=== PATIENT | female | born 1945 | race Caucasian/White ===

== ENCOUNTER 2018-11-06 11:04 | Emergency (ER) | payer MEDICARE ==
[2018-11-06 11:48] VITALS: BP 155/87
--- NOTE | 2018-11-06 12:09 | UC ---
Back Pain HPI - HPI Summary HPI Summary: Patient is a 73-year-old female here with lower back pain. Patient has had sciatica off and on chronically. On Saturday, patient lifted her granddaughter who weight 40 pounds and developed worsening pain in her left lower back. Patient's pain does radiate to her left hip. Patient has no fever, history of diabetes, history of drug use, bowel/bladder dysfunction, saddle anesthesia, weakness. Patient did notice a small amount of blood on her toilet this morning after she wiped her rectum. Patient does have a history of "septic colitis "requiring one week of hospitalization with presented with rectal bleeding and fever. Medications reviewed - History of Current Complaint Chief Complaint: UCGeneralIllness Stated Complaint: PAIN IN HIP / PELVIS AREA Time Seen by Provider: 11/06/18 11:55 Hx Obtained From: Patient Onset/Duration: Gradual Onset Timing: Constant Severity Initially: Mild Severity Currently: Moderate Pain Intensity: 6 - Allergies/Home Medications Allergies/Adverse Reactions: Allergies Allergy/AdvReac Type Severity Reaction Status Date / Time CARLOS Inhibitors Allergy Coughing Verified 11/06/18 11:56 azithromycin [From Zithromax] Allergy Rash Verified 11/06/18 11:56 clindamycin Allergy unk Verified 11/06/18 11:56 nitrofurantoin Allergy unk Verified 11/06/18 11:57 sertraline Allergy Rash Verified 11/06/18 11:57 sulfamethoxazole Allergy Rash Verified 11/06/18 11:58 [From Bactrim] trimethoprim [From Bactrim] Allergy Rash Verified 11/06/18 11:58 Home Medications: Home Medications Lisinopril 20 mg PO DAILY 11/06/18 [History Confirmed 11/06/18] Metoprolol Tartrate 1 tab PO BID 11/06/18 [History Confirmed 11/06/18] Metoprolol Tartrate 1 tab PO DAILY 11/06/18 [History Confirmed 11/06/18] levETIRAcetam [Levetiracetam] 1 tab PO BID 11/06/18 [History Confirmed 11/06/18] PMH/Surg Hx/FS Hx/Imm Hx Previously Healthy: Yes - Surgical History Surgical History: Yes Surgery Procedure, Year, and Place: hx of cervical surgery following HPV - Family History Known Family History: Negative: Cardiac Disease, Hypertension, Diabetes - Social History Alcohol Use: None Substance Use Type: None Smoking Status (MU): Never Smoked Tobacco - Immunization History Most Recent Influenza Vaccination: this influenza season received at [facility] Most Recent Tetanus Shot: n/a Most Recent Pneumonia Vaccination: thinks she may have received in the past Review of Systems All Other Systems Reviewed And Are Negative: Yes Constitutional: Negative: Fever, Chills ENT: Negative: Sore Throat, Nasal Discharge Respiratory: Negative: Shortness Of Breath Cardiovascular: Negative: Palpitations, Chest Pain Gastrointestinal: Negative: Abdominal Pain, Vomiting, Diarrhea Genitourinary: Negative: Dysuria, Hematuria Physical Exam - Summary Physical Exam Summary: Vital Signs Reviewed: Yes A+Ox3, no distress Eyes: Conjunctiva Clear, PERRL. EOM intact and full ENT: Hearing grossly normal TM x 2 clear, moist, uvula midline, no exudate, no erythema Neck: Positive: Supple Respiratory: Positive: No respiratory distress, No accessory muscle use + CTA throughout no w/r Cardiovascular: RRR nl s1, s2 no m/r CBT <2 sec abd soft + BS nt/nd no guarding, no distension. Brown stool on rectal exam. Small external hemorrhoid Musculoskeletal Exam: CHANG x 4 without difficulty Strength Intact, ROM Intact. Mild left lateral, lower back pain. Patient able ambulate without difficulty. Straight leg raise negative bilaterally. No midline tenderness Neurological: Positive: Alert, + sensation throughout Psychological: Positive: Normal Response To Family Skin: no rash, no ecchymosis Vital Signs: Initial Vital Signs Temp 98.2 F 11/06/18 11:44 Pulse 67 11/06/18 11:44 Resp 16 11/06/18 11:44 BP 155/87 11/06/18 11:44 Pulse Ox 100 11/06/18 11:44 Back Pain Course/Dx - Course Course Of Treatment: Patient is here with lower back pain that is consistent with a muscular strain. Patient sits her symptoms in the past. Patient is overall well-appearing with her only red flag is her age. Patient had negative x-ray for fracture. Patient did have one episode of blood on the toilet paper today with no blood on rectal exam. Patient has a history of colitis in the past requiring hospitalization. Patient was encouraged to go to the hospital if she continued to have rectal bleeding. - Differential Dx/Diagnosis Differential Diagnosis/HQI/PQRI: Fracture, Herniated Disc, Strain, Sprain, Other - Colitis Provider Diagnosis: Lower back pain Discharge - Sign-Out/Discharge Documenting (check all that apply): Patient Departure All imaging exams completed and their final reports reviewed: Yes - Discharge Plan Condition: Stable Disposition: HOME Patient Education Materials: Low Back Strain (ED) Referrals: Pradip Sanz MD [Primary Care Provider] - Additional Instructions: Please take ibuprofen and Tylenol for pain please go straight to the emergency department if worsening abdominal pain or rectal bleeding - Billing Disposition and Condition Condition: STABLE Disposition: Home
== END 2018-11-06 14:15 | disposition home or self-care (01) ==
LOC: UCEAST 11:04
DX: M54.5 Low back pain (principal); Z88.2 Allergy status to sulfonamides
CPT/HCPCS: 72110; 99211; G0463

== ENCOUNTER 2020-02-20 20:20 | Inpatient (IN) ==
[2020-02-20] MEDS ORDERED: Tetan/Diph/Pertus SYR(Tdap) 0.5 ML SYR(BOOSTRIX) use SYR contains LATEX IM ONE (20:36)
[2020-02-20 21:54] LABS: ABS Eosinophils 0.1 10^3/ul (0-0.6); ABS Lymphocytes 1.8 10^3/ul (1.0-4.8); ABS Monocytes 0.7 10^3/ul (0-0.8); Eosinophil % 1.9 %; Hematocrit 38 % (35-47); Lymphocyte % 23.6 %; Mean Corpuscular HGB Conc 34 g/dL (31-36); Mean Corpuscular Hemoglobin 30 pg (27-31); Mean Corpuscular Volume 89 fL (80-97); Mean Platelet Volume 7.2 fL (7.4-10.4); Platelet Count 286 10^3/uL (150-450); Red Blood Count 4.31 10^6 /uL (3.70-4.87); Red Cell Distribution Width 13 % (10-15); White Blood Count 7.7 10^3/uL (3.5-10.8)
[2020-02-20 22:12] LABS: ALT 9 U/L (7-52); AST 14 U/L (13-39); Albumin 4.1 g/dL (3.2-5.2); Albumin/Globulin Ratio 1.6 (1-3); Alkaline Phosphatase 90 U/L (34-104); Anion Gap 10 mmol/L (2-11); BUN/Creatinine Ratio 15.7 (8-20); Blood Urea Nitrogen 13 mg/dL (6-24); CO2 Carbon Dioxide 25 mmol/L (22-32); Calcium 9.6 mg/dL (8.6-10.3); Chloride 102 mmol/L (101-111); EGFR African American 81.8 (>60); EGFR Non-African American 67.6 (>60); Globulin 2.6 g/dL (2-4); Glucose 100 mg/dL (70-100); Potassium 3.5 mmol/L (3.5-5.0); Sodium 137 mmol/L (135-145); Total Protein 6.7 g/dL (6.4-8.9)
[2020-02-20 22:51] LABS: Urine Appearance Cloudy; Urine Bilirubin Negative (Negative); Urine Blood 1+ (Negative); Urine Color Yellow; Urine Glucose Negative (Negative); Urine Ketones Trace (Negative); Urine Nitrite Negative (Negative); Urine Protein Negative (Negative); Urine Specific Gravity 1.011 (1.010-1.030); Urine Urobilinogen Negative (Negative)
[2020-02-20 22:51] LABS: Acetaminophen < 15 mcg/mL; Alcohol, S < 10 mg/dL (<10); Salicylate < 2.50 mg/dL (<30)
[2020-02-20 23:00] LABS: Urine Bacteria 1+ (Absent); Urine Red Blood Cell 2+(6-10/hpf) (Absent); Urine Squamous Epithelial Cell Present (Absent); Urine White Blood Cell 1+(6-10/hpf) (Absent)
[2020-02-20 23:03] LABS: Urine Benzodiazepine Screen None Detected (None Detect); Urine Cannabinoids Screen None Detected (None Detect); Urine Opiates Screen None Detected (None Detect)
[2020-02-20 23:38] LABS: TSH Ultra Thyroid Stim Horm 0.74 mcIU/mL (0.34-5.60)
[2020-02-21] MEDS ORDERED: CHLORPROMAZINE 50 MG PO (04:15)
[2020-02-21] MEDS ORDERED: Albuterol HFA INHALER 8 gm MDI INH PRN (04:24)
[2020-02-21] MEDS: Vitamin THERAPEUTIC TAB PO SCH (08:50)
[2020-02-21] MEDS: DULoxetine DR 30 mg CAP PO SCH (08:50)
[2020-02-21] MEDS: Aspirin EC 81 mg TAB.EC (enteric coated) PO SCH (08:51)
[2020-02-21] MEDS: Mometasone/Formoter 200/5 MDI INH SCH ×2 (08:57→21:53)
[2020-02-21] MEDS: Al Hydrox/Mg Hydrox/Simet LIQ 30 ML UDC PO PRN (17:58)
[2020-02-22] MEDS: Aspirin EC 81 mg TAB.EC (enteric coated) PO SCH (09:03)
[2020-02-22] MEDS: Vitamin THERAPEUTIC TAB PO SCH (09:03)
[2020-02-22] MEDS: Mometasone/Formoter 200/5 MDI INH SCH ×2 (09:03→19:01)
[2020-02-22] MEDS: DULoxetine DR 30 mg CAP PO SCH (09:03)
[2020-02-22] MEDS: Bacitracin OINTMENT TUBE TOPICAL SCH ×2 (16:25→19:34)
[2020-02-23] MEDS: Mometasone/Formoter 200/5 MDI INH SCH ×2 (09:14→19:12)
[2020-02-23] MEDS: DULoxetine DR 30 mg CAP PO SCH ×2 (09:16→19:08)
[2020-02-23] MEDS: Aspirin EC 81 mg TAB.EC (enteric coated) PO SCH (09:16)
[2020-02-23] MEDS: Vitamin THERAPEUTIC TAB PO SCH (09:20)
[2020-02-23] MEDS: Bacitracin OINTMENT TUBE TOPICAL SCH ×2 (11:13→19:14)
[2020-02-23] MEDS: Al Hydrox/Mg Hydrox/Simet LIQ 30 ML UDC PO PRN (17:30)
[2020-02-24] MEDS: Mometasone/Formoter 200/5 MDI INH SCH ×2 (07:58→19:17)
[2020-02-24] MEDS: DULoxetine DR 30 mg CAP PO SCH ×2 (07:59→19:14)
[2020-02-24] MEDS: Bacitracin OINTMENT TUBE TOPICAL SCH ×2 (07:59→19:19)
[2020-02-24] MEDS: Vitamin THERAPEUTIC TAB PO SCH (08:04)
[2020-02-24] MEDS: Aspirin EC 81 mg TAB.EC (enteric coated) PO SCH (08:17)
[2020-02-25] MEDS: Aspirin EC 81 mg TAB.EC (enteric coated) PO SCH (08:00)
[2020-02-25] MEDS: DULoxetine DR 30 mg CAP PO SCH ×2 (08:01→19:10)
[2020-02-25] MEDS: Vitamin THERAPEUTIC TAB PO SCH (08:01)
[2020-02-25] MEDS: Mometasone/Formoter 200/5 MDI INH SCH ×2 (08:02→19:11)
[2020-02-25] MEDS: Bacitracin OINTMENT TUBE TOPICAL SCH ×2 (08:02→20:22)
[2020-02-26] MEDS: Mometasone/Formoter 200/5 MDI INH SCH (09:08)
[2020-02-26] MEDS: Aspirin EC 81 mg TAB.EC (enteric coated) PO SCH (09:09)
[2020-02-26] MEDS: DULoxetine DR 30 mg CAP PO SCH (09:09)
[2020-02-26] MEDS: Vitamin THERAPEUTIC TAB PO SCH (09:10)
[2020-02-26] MEDS: Bacitracin OINTMENT TUBE TOPICAL SCH (09:14)
[2020-02-26 09:30] VITALS: BP 174/95
== END 2020-02-26 15:00 | disposition home or self-care (01) | DRG 885 ==
LOC: ED 20:20 → BSU 02-21 00:42 → ED 02-21 03:03
PROVIDERS: ADMIT Psychiatry & Neurology Addiction Psychiatry; ATTEND Psychiatry & Neurology Addiction Psychiatry

== ENCOUNTER 2020-03-21 20:15 | Inpatient (IN) ==
[2020-03-21 21:16] LABS: ABS Basophils 0.2 10^3/ul (0-0.2); ABS Eosinophils 0.1 10^3/ul (0-0.6); ABS Lymphocytes 2.3 10^3/ul (1.0-4.8); ABS Monocytes 0.7 10^3/ul (0-0.8); Eosinophil % 1.5 %; Hematocrit 38 % (35-47); Hemoglobin 13.1 g/dL (12.0-16.0); Lymphocyte % 27.5 %; Mean Corpuscular HGB Conc 34 g/dL (31-36); Mean Corpuscular Hemoglobin 30 pg (27-31); Mean Corpuscular Volume 87 fL (80-97); Mean Platelet Volume 6.9 fL (7.4-10.4); Nucleated Red Blood Cells % 0.1; Platelet Count 323 10^3/uL (150-450); Red Blood Count 4.38 10^6 /uL (3.70-4.87); Red Cell Distribution Width 13 % (10-15); White Blood Count 8.3 10^3/uL (3.5-10.8)
[2020-03-21 21:40] LABS: ALT 11 U/L (7-52); Albumin/Globulin Ratio 1.7 (1-3); Alkaline Phosphatase 83 U/L (34-104); BUN/Creatinine Ratio 15.1 (8-20); Blood Urea Nitrogen 11 mg/dL (6-24); CO2 Carbon Dioxide 23 mmol/L (22-32); Calcium 9.2 mg/dL (8.6-10.3); Chloride 97 mmol/L (101-111); Creatine Kinase 68 U/L (10-223); EGFR African American 94.8 (>60); EGFR Non-African American 78.4 (>60); Globulin 2.4 g/dL (2-4); Glucose 91 mg/dL (70-100); Magnesium 2.1 mg/dL (1.9-2.7); Sodium 129 mmol/L (135-145); Total Protein 6.4 g/dL (6.4-8.9)
[2020-03-21 22:05] LABS: Alcohol, S < 10 mg/dL (<10)
[2020-03-21 22:51] LABS: AST 18 U/L (13-39); Anion Gap 9 mmol/L (2-11)
[2020-03-22 00:35] LABS: TSH Ultra Thyroid Stim Horm 1.73 mcIU/mL (0.34-5.60)
[2020-03-22 00:48] LABS: Urine Appearance Clear; Urine Bilirubin Negative (Negative); Urine Blood 1+ (Negative); Urine Color Straw; Urine Glucose Negative (Negative); Urine Ketones Negative (Negative); Urine Nitrite Negative (Negative); Urine Protein Negative (Negative); Urine Specific Gravity 1.004 (1.010-1.030); Urine Urobilinogen Negative (Negative)
[2020-03-22 00:54] LABS: Urine Bacteria Absent (Absent); Urine Red Blood Cell Trace(0-2/hpf) (Absent); Urine Squamous Epithelial Cell Present (Absent); Urine White Blood Cell Trace(0-5/hpf) (Absent)
[2020-03-22] MEDS ORDERED: Albuterol HFA INHALER 8 gm MDI INH PRN (02:12)
[2020-03-22 04:46] LABS: ABS Basophils 0.1 10^3/ul (0-0.2); ABS Eosinophils 0.1 10^3/ul (0-0.6); ABS Lymphocytes 1.9 10^3/ul (1.0-4.8); ABS Monocytes 0.6 10^3/ul (0-0.8); ABS Neutrophils 5.2 10^3/ul (1.5-7.7); Eosinophil % 1.1 %; Lymphocyte % 24.8 %
[2020-03-22 05:01] LABS: BUN/Creatinine Ratio 12.5 (8-20); Calcium 8.9 mg/dL (8.6-10.3); EGFR African American 96.3 (>60); EGFR Non-African American 79.6 (>60); Potassium 3.4 mmol/L (3.5-5.0)
[2020-03-22 05:42] LABS: Carbamazepine 6.4 mcg/mL (4.0-12.0)
[2020-03-22 08:09] LABS: Hematocrit 38 % (35-47); Hemoglobin 13.1 g/dL (12.0-16.0); Mean Corpuscular HGB Conc 34 g/dL (31-36); Mean Corpuscular Hemoglobin 30 pg (27-31); Mean Corpuscular Volume 88 fL (80-97); Mean Platelet Volume 7.3 fL (7.4-10.4); Platelet Count 299 10^3/uL (150-450); Red Blood Count 4.33 10^6 /uL (3.70-4.87); Red Cell Distribution Width 13 % (10-15); White Blood Count 7.9 10^3/uL (3.5-10.8)
[2020-03-22] MEDS: Fluticasone NASAL SPRAY 50MCG 16 gm SPRAY BTL INTRANASAL SCH (08:55)
[2020-03-22] MEDS: DULoxetine DR 30 mg CAP PO SCH ×2 (08:58→20:58)
[2020-03-22] MEDS: Mometasone/Formoter 200/5 MDI INH SCH ×2 (09:00→21:07)
[2020-03-22] MEDS ORDERED: Potassium Chlor 20 meq TAB.ER PO ONE (14:00)
[2020-03-22] MEDS ORDERED: Al Hydrox/Mg Hydrox/Simet LIQ 30 ML UDC PO PRN (15:30)
[2020-03-23 07:34] LABS: ABS Basophils 0.1 10^3/ul (0-0.2); ABS Eosinophils 0.1 10^3/ul (0-0.6); ABS Lymphocytes 1.8 10^3/ul (1.0-4.8); ABS Monocytes 0.5 10^3/ul (0-0.8); Eosinophil % 1.6 %; Hematocrit 40 % (35-47); Hemoglobin 13.4 g/dL (12.0-16.0); Lymphocyte % 27.3 %; Mean Corpuscular HGB Conc 34 g/dL (31-36); Mean Corpuscular Hemoglobin 30 pg (27-31); Mean Corpuscular Volume 89 fL (80-97); Mean Platelet Volume 6.9 fL (7.4-10.4); Platelet Count 313 10^3/uL (150-450); Red Blood Count 4.49 10^6 /uL (3.70-4.87); Red Cell Distribution Width 13 % (10-15); White Blood Count 6.5 10^3/uL (3.5-10.8)
[2020-03-23 07:45] LABS: BUN/Creatinine Ratio 15.2 (8-20); EGFR African American 86.6 (>60); EGFR Non-African American 71.5 (>60); HDL Cholesterol 50.1 mg/dL; Potassium 4.2 mmol/L (3.5-5.0)
[2020-03-23] MEDS: Fluticasone NASAL SPRAY 50MCG 16 gm SPRAY BTL INTRANASAL SCH (08:22)
[2020-03-23] MEDS: Mometasone/Formoter 200/5 MDI INH SCH ×3 (08:23→21:29)
[2020-03-23] MEDS: DULoxetine DR 30 mg CAP PO SCH ×2 (08:25→21:28)
[2020-03-23] MEDS ORDERED: Nitroglycerin 0.4 mg/hr PATCH (10 mg) TRANSDERM SCH (17:00)
[2020-03-23] MEDS ORDERED: Nitroglycerin 0.4 mg/hr PATCH (10 mg) TRANSDERM ONE (18:55)
[2020-03-23] MEDS ORDERED: Nitro Patch/OINT Remove PATCH PATCH OFF SCH (21:00)
[2020-03-24] MEDS ORDERED: Nitro Patch/OINT Remove PATCH TOPICAL ONE (07:00)
[2020-03-24 09:13] VITALS: BP 121/70
[2020-03-24] MEDS: DULoxetine DR 30 mg CAP PO SCH (09:18)
[2020-03-24] MEDS: Fluticasone NASAL SPRAY 50MCG 16 gm SPRAY BTL INTRANASAL SCH (09:23)
[2020-03-24] MEDS: Mometasone/Formoter 200/5 MDI INH SCH (09:23)
== END 2020-03-24 13:15 | disposition home or self-care (01) | DRG 885 ==
LOC: ED 20:15 → SSU 20:15 → BSU 03-22 15:30
PROVIDERS: ADMIT Internal Medicine; ATTEND Psychiatry & Neurology Psychiatry

== ENCOUNTER 2020-05-01 10:10 | Inpatient (IN) ==
[2020-05-01] MEDS ORDERED: NS 0.9% 1000 ml BAG 1,000 ML IV ONE ×4 (10:25→14:38)
[2020-05-01 11:31] LABS: ABS Lymphocytes 1.3 10^3/ul (1.0-4.8); ABS Monocytes 0.5 10^3/ul (0-0.8); ABS Neutrophils 7.2 10^3/ul (1.5-7.7); Eosinophil % 0.2 %; Hematocrit 43 % (35-47); Lymphocyte % 14.3 %; Mean Corpuscular HGB Conc 33 g/dL (31-36); Mean Corpuscular Hemoglobin 30 pg (27-31); Mean Corpuscular Volume 93 fL (80-97); Mean Platelet Volume 7.1 fL (7.4-10.4); Nucleated Red Blood Cells % 0.3; Platelet Count 291 10^3/uL (150-450); Red Cell Distribution Width 13 % (10-15); White Blood Count 9.1 10^3/uL (3.5-10.8)
[2020-05-01] MEDS ORDERED: Morphine 4 MG/ML VIAL (1 ml) IV ONE (11:33)
[2020-05-01] MEDS ORDERED: Ondansetron 4 mg VIAL 2 MG/ML 2 ml VIAL IV ONE (11:34)
[2020-05-01 11:38] LABS: Albumin 2.4 g/dL (3.2-5.2); Calcium 7.2 mg/dL (8.6-10.3); Magnesium 2.4 mg/dL (1.9-2.7); Potassium 3.6 mmol/L (3.5-5.0); Total Bilirubin 0.7 mg/dL (0.2-1.0)
[2020-05-01 11:44] LABS: Albumin/Globulin Ratio 1.3 (1-3); BUN/Creatinine Ratio 8.8 (8-20); EGFR African American 35.7 (>60); EGFR Non-African American 29.5 (>60); Globulin 1.8 g/dL (2-4); Total Protein 4.2 g/dL (6.4-8.9); Troponin I 0.01 ng/mL (<0.03)
[2020-05-01 12:19] LABS: TSH Ultra Thyroid Stim Horm 2.99 mcIU/mL (0.34-5.60)
[2020-05-01 14:14] LABS: BUN/Creatinine Ratio 10.4 (8-20); Calcium 6.9 mg/dL (8.6-10.3); EGFR African American 37.5 (>60); Potassium 3.9 mmol/L (3.5-5.0)
[2020-05-01 14:35] LABS: C Reactive Protein 50.37 mg/L (<8.01)
[2020-05-01] MEDS ORDERED: Piperacillin/Tazobac ADVAN 3.375 GM in NS 0.9% 100 ml BAG 100 ML IVPB ONE (14:38)
[2020-05-01] MEDS: Norepinephrine 16MCG/ML IVPRE 4,000 MCG/250 ML BAG IV SCH ×2 (15:19→21:19)
[2020-05-01 15:24] LABS: Urine Appearance Cloudy; Urine Bilirubin Negative (Negative); Urine Blood 2+ (Negative); Urine Color Amber; Urine Glucose Negative (Negative); Urine Ketones Negative (Negative); Urine Nitrite Negative (Negative); Urine Protein 1+(30 mg/dL) (Negative); Urine Specific Gravity 1.011 (1.010-1.030); Urine Urobilinogen Positive (Negative)
[2020-05-01 15:28] LABS: Urine Bacteria Absent (Absent); Urine Granular Casts Present (Absent); Urine Red Blood Cell Trace(0-2/hpf) (Absent); Urine Squamous Epithelial Cell Present (Absent); Urine White Blood Cell Trace(0-5/hpf) (Absent)
[2020-05-01] MEDS ORDERED: Ketamine HCL 50 mg/ml 10 ml VIAL (500 MG) ONE (15:35)
[2020-05-01] MEDS ORDERED: fentaNYL 100 mcg/2 ml 50 MCG/ML VIAL ONE ×2 (15:35→19:26)
[2020-05-01] MEDS ORDERED: Midazolam 2 mg/2 ml VIAL 1 mg/ml 2 ml VIAL (2 mg) ONE ×2 (15:36→19:26)
[2020-05-01] MEDS ORDERED: Succinylcholine 200 mg VIAL 20 mg/ml 10 ml VIAL (200 mg) ONE (15:39)
[2020-05-01] MEDS ORDERED: Norepinephrine 16MCG/ML IVPRE 4,000 MCG/250 ML BAG IV ONE (15:42)
[2020-05-01] MEDS ORDERED: Lidocaine 2% PF 5 ML VIAL ONE (15:52)
[2020-05-01] MEDS ORDERED: Etomidate 20 mg/10 ml 2 MG/ML 10 ml VIAL ONE (15:52)
[2020-05-01] MEDS ORDERED: Sodium Citrate/Citric Acid LIQ 15 ML UDC ONE (16:06)
[2020-05-01] MEDS ORDERED: Famotidine IV 10 MG/ML 2 ml VIAL (20 mg) ONE (16:07)
[2020-05-01 16:14] LABS: Activated Partial Thrombo Time 33.6 seconds (26.0-38.0); INR 1.14 (0.82-1.09)
[2020-05-01] MEDS ORDERED: Bupivacaine 0.25% SDV 30 ML ONE (16:15)
[2020-05-01] MEDS ORDERED: Rocuronium 50 mg VIAL 10 mg/ml 5 ml VIAL (50 mg) ONE (17:26)
[2020-05-01] MEDS ORDERED: Glycopyrrolate IV 0.2 MG/ML 1 ML VIAL ONE (19:03)
[2020-05-01] MEDS ORDERED: Zosyn per Pharmacy NOTE FOLLOW UP SCH (21:00)
[2020-05-01] MEDS: Propofol 10 mg/ml 100 ML BTL 100 ML IV SCH (21:20)
[2020-05-01] MEDS: fentaNYL INFUSION 50 MCG/ML 2,500 MCG/50 ML BAG IV SCH (21:36)
[2020-05-01] MEDS: Chlorhexidine MOUTHWASH 0.12% 15 ML UDC TOPICAL SCH (22:22)
[2020-05-01] MEDS: Famotidine IV 10 MG/ML 2 ml VIAL (20 mg) IV SLOW PU SCH (22:22)
[2020-05-01] MEDS: Heparin 5000 UNITS/ML 1 mL VIAL SUBCUT SCH (22:22)
[2020-05-01] MEDS: ZOSYN 3.375 GM Q12H per EXTENDED INFUSION IV SCH (23:07)
[2020-05-01] MEDS: Propofol* 20 ML VIAL - FOR IV LINE PRIMING ONLY SCH (23:08)
[2020-05-02] MEDS ORDERED: HYDROmorphone 1 MG/1 ML SYRINGE IV SLOW PU PRN (01:43)
[2020-05-02] MEDS: Chlorhexidine MOUTHWASH 0.12% 15 ML UDC TOPICAL SCH ×6 (02:05→21:42)
[2020-05-02] MEDS: Norepinephrine 16MCG/ML IVPRE 4,000 MCG/250 ML BAG IV SCH ×2 (02:05→06:37)
[2020-05-02 03:30] LABS: ABS Monocytes 0.2 10^3/ul (0-0.8); ABS Neutrophils 5.8 10^3/ul (1.5-7.7); Hematocrit 45 % (35-47); Lymphocyte % 13.9 %; Mean Corpuscular HGB Conc 33 g/dL (31-36); Mean Corpuscular Hemoglobin 30 pg (27-31); Mean Corpuscular Volume 90 fL (80-97); Mean Platelet Volume 7.7 fL (7.4-10.4); Platelet Count 270 10^3/uL (150-450); Red Blood Count 4.97 10^6 /uL (3.70-4.87); Red Cell Distribution Width 13 % (10-15)
[2020-05-02 03:45] LABS: Albumin 2.5 g/dL (3.2-5.2); Albumin/Globulin Ratio 1.5 (1-3); BUN/Creatinine Ratio 14.4 (8-20); EGFR African American 42.6 (>60); EGFR Non-African American 35.2 (>60); Globulin 1.7 g/dL (2-4); Potassium 4.6 mmol/L (3.5-5.0); Total Bilirubin 0.6 mg/dL (0.2-1.0); Total Protein 4.2 g/dL (6.4-8.9)
[2020-05-02] MEDS ORDERED: Lactated Ringers 500 ml BAG 500 ML IV ONE (03:53)
[2020-05-02 04:18] LABS: Urine Appearance Cloudy; Urine Bilirubin 1+ (Negative); Urine Blood 2+ (Negative); Urine Color Amber; Urine Glucose Negative (Negative); Urine Ketones Trace (Negative); Urine Nitrite Negative (Negative); Urine Protein 2+(100 mg/dL) (Negative); Urine Specific Gravity 1.018 (1.010-1.030); Urine Urobilinogen Positive (Negative)
[2020-05-02 04:26] LABS: Urine Bacteria 1+ (Absent); Urine Granular Casts Present (Absent); Urine Red Blood Cell 3+(>10/hpf) (Absent); Urine Squamous Epithelial Cell Present (Absent); Urine White Blood Cell Trace(0-5/hpf) (Absent)
[2020-05-02] MEDS: Heparin 5000 UNITS/ML 1 mL VIAL SUBCUT SCH ×3 (06:13→21:42)
[2020-05-02] MEDS ORDERED: Dextrose 50% Syringe 50 ml 25 GM/50 ML SYRINGE IV PUSH PRN (06:20)
[2020-05-02] MEDS: D5LR 1000 ml BAG 1,000 ML IV SCH ×2 (06:36→09:23)
[2020-05-02] MEDS: ZOSYN 3.375 GM Q12H per EXTENDED INFUSION IV SCH ×2 (08:20→21:42)
[2020-05-02] MEDS: Famotidine IV 10 MG/ML 2 ml VIAL (20 mg) IV SLOW PU SCH ×2 (09:05→21:42)
[2020-05-02] MEDS: Propofol 10 mg/ml 100 ML BTL 100 ML IV SCH (09:13)
[2020-05-02] MEDS: Propofol* 20 ML VIAL - FOR IV LINE PRIMING ONLY SCH ×2 (10:08→21:43)
[2020-05-02] MEDS ORDERED: Sodium Bicarbonate 8.4% SYR 50 ml SYRINGE IV ONE (11:17)
[2020-05-02] MEDS ORDERED: Norepinephrine 16MCG/ML IVPRE 4,000 MCG/250 ML BAG IV ONE (11:34)
[2020-05-02] MEDS: Acetaminophen IV 1 GM/100ML 100 ML IVPB SCH ×2 (11:38→19:15)
[2020-05-02] MEDS: Phenylephrine IV 50 MG in NS 0.9% 250 ml 245 ML IV SCH ×2 (11:46→18:31)
[2020-05-02] MEDS ORDERED: NS 0.9% 1000 ml BAG 1,000 ML IV ONE ×2 (12:09→16:44)
[2020-05-02] MEDS: CARBAMAZEPINE G TUBE SCH ×2 (15:07→21:44)
[2020-05-02] MEDS ORDERED: Vasopressin 100 UNITS in D5W 250 ml BAG 245 ML IV SCH (17:00)
[2020-05-02] MEDS ORDERED: Norepinephrine IV 8 MG in NS 0.9% 500 ml BAG 492 ML IV SCH (17:00)
[2020-05-02] MEDS ORDERED: Norepinephrine 16MCG/ML IVPRE 4,000 MCG/250 ML BAG IV SCH (17:00)
[2020-05-02] MEDS ORDERED: Albumin Human 25% 25 GM/100 ML BTL IV ONE (18:00)
[2020-05-02] MEDS: [UNRECOGNIZED DRUG - OTHER] IV SCH (19:18)
[2020-05-02 20:57] LABS: BUN/Creatinine Ratio 15.5 (8-20); EGFR African American 33.3 (>60); EGFR Non-African American 27.5 (>60); Potassium 4.2 mmol/L (3.5-5.0)
[2020-05-02 20:58] LABS: Calcium 6.1 mg/dL (8.6-10.3)
[2020-05-02] MEDS ORDERED: Calcium Gluconate 2 GM in NS 0.9% 100 ml BAG 100 ML IV ONE (21:03)
[2020-05-03] MEDS: fentaNYL INFUSION 50 MCG/ML 2,500 MCG/50 ML BAG IV SCH (00:27)
[2020-05-03] MEDS: Chlorhexidine MOUTHWASH 0.12% 15 ML UDC TOPICAL SCH ×6 (01:21→20:17)
[2020-05-03] MEDS: Phenylephrine IV 50 MG in NS 0.9% 250 ml 245 ML IV SCH ×2 (01:52→11:15)
[2020-05-03] MEDS: Acetaminophen IV 1 GM/100ML 100 ML IVPB SCH (03:52)
[2020-05-03 04:24] LABS: Hematocrit 31 % (35-47); Hemoglobin 10.7 g/dL (12.0-16.0); Mean Corpuscular HGB Conc 34 g/dL (31-36); Mean Corpuscular Hemoglobin 30 pg (27-31); Mean Corpuscular Volume 88 fL (80-97); Platelet Count 135 10^3/uL (150-450); Red Blood Count 3.54 10^6 /uL (3.70-4.87); Red Cell Distribution Width 14 % (10-15); White Blood Count 7.2 10^3/uL (3.5-10.8)
[2020-05-03 04:41] LABS: BUN/Creatinine Ratio 14.6 (8-20); Calcium 6.7 mg/dL (8.6-10.3); EGFR African American 28.6 (>60); EGFR Non-African American 23.7 (>60); Magnesium 1.6 mg/dL (1.9-2.7); Potassium 4.4 mmol/L (3.5-5.0)
[2020-05-03] MEDS ORDERED: Calcium Gluconate 2 GM in NS 0.9% 100 ml BAG 100 ML IV ONE (05:30)
[2020-05-03] MEDS: Heparin 5000 UNITS/ML 1 mL VIAL SUBCUT SCH ×3 (05:53→21:36)
[2020-05-03 07:18] LABS: ABS Monocytes 0.2 10^3/ul (0-0.8); Eosinophil % 0.2 %; Lymphocyte % 13.3 %; Nucleated Red Blood Cells % 0.1
[2020-05-03] MEDS ORDERED: Magnesium Sulfate 2 gm BAG 2 GM/50 ML BAG IVPB ONE (07:27)
[2020-05-03] MEDS: Famotidine IV 10 MG/ML 2 ml VIAL (20 mg) IV SLOW PU SCH ×2 (07:55→20:17)
[2020-05-03] MEDS: ZOSYN 3.375 GM Q12H per EXTENDED INFUSION IV SCH ×2 (07:55→20:17)
[2020-05-03] MEDS: CARBAMAZEPINE G TUBE SCH ×3 (08:01→20:17)
[2020-05-03] MEDS ORDERED: Albumin Human 25% 25 GM/100 ML BTL IV ONE (10:56)
[2020-05-03] MEDS: Propofol* 20 ML VIAL - FOR IV LINE PRIMING ONLY SCH ×2 (11:29→22:28)
[2020-05-03] MEDS: [UNRECOGNIZED DRUG - OTHER] IV SCH ×2 (16:23→23:50)
[2020-05-03] MEDS ORDERED: Norepinephrine IV 8 MG in NS 0.9% 500 ml BAG 492 ML IV SCH (16:33)
[2020-05-03] MEDS: Propofol 10 mg/ml 100 ML BTL 100 ML IV SCH (17:12)
[2020-05-04] MEDS ORDERED: NS 0.9% 500 ml BAG 500 ML IV ONE (00:19)
[2020-05-04] MEDS: Chlorhexidine MOUTHWASH 0.12% 15 ML UDC TOPICAL SCH ×6 (00:57→20:17)
[2020-05-04] MEDS ORDERED: Norepinephrine 16MCG/ML IVPRE 0 MCG/0 ML BAG IV ONE (03:35)
[2020-05-04] MEDS: Heparin 5000 UNITS/ML 1 mL VIAL SUBCUT SCH ×3 (04:53→20:17)
[2020-05-04 05:10] LABS: BUN/Creatinine Ratio 14.3 (8-20); EGFR African American 23.4 (>60); EGFR Non-African American 19.4 (>60); Potassium 4.4 mmol/L (3.5-5.0)
[2020-05-04 05:16] LABS: Hematocrit 29 % (35-47); Hemoglobin 9.9 g/dL (12.0-16.0); Mean Corpuscular HGB Conc 34 g/dL (31-36); Mean Corpuscular Hemoglobin 30 pg (27-31); Mean Corpuscular Volume 88 fL (80-97); Red Blood Count 3.36 10^6 /uL (3.70-4.87); Red Cell Distribution Width 14 % (10-15); White Blood Count 4.4 10^3/uL (3.5-10.8)
[2020-05-04 07:35] LABS: Burr Cells 1+
[2020-05-04] MEDS: Propofol 10 mg/ml 100 ML BTL 100 ML IV SCH (07:35)
[2020-05-04] MEDS: ZOSYN 3.375 GM Q12H per EXTENDED INFUSION IV SCH ×2 (07:36→20:16)
[2020-05-04] MEDS: CARBAMAZEPINE G TUBE SCH ×3 (07:36→20:17)
[2020-05-04] MEDS: Famotidine IV 10 MG/ML 2 ml VIAL (20 mg) IV SLOW PU SCH ×2 (07:36→20:17)
[2020-05-04 07:39] LABS: ABS Lymphocytes 0.6 10^3/ul (1.0-4.8); ABS Monocytes 0.2 10^3/ul (0-0.8); ABS Neutrophils 3.5 10^3/ul (1.5-7.7); Eosinophil % 0.6 %; Mean Platelet Volume 8.1 fL (7.4-10.4); Nucleated Red Blood Cells % 0.1; Platelet Count 75 10^3/uL (150-450)
[2020-05-04] MEDS: [UNRECOGNIZED DRUG - OTHER] IV SCH (07:57)
[2020-05-04] MEDS: fentaNYL INFUSION 50 MCG/ML 2,500 MCG/50 ML BAG IV SCH (08:06)
[2020-05-04 08:19] LABS: INR 1.19 (0.82-1.09)
[2020-05-04] MEDS: Propofol* 20 ML VIAL - FOR IV LINE PRIMING ONLY SCH ×2 (10:05→22:29)
[2020-05-04] MEDS ORDERED: fentaNYL 100 mcg/2 ml 50 MCG/ML VIAL ONE (12:20)
[2020-05-04] MEDS ORDERED: Midazolam 2 mg/2 ml VIAL 1 mg/ml 2 ml VIAL (2 mg) ONE (12:20)
[2020-05-04] MEDS ORDERED: Rocuronium 50 mg VIAL 10 mg/ml 5 ml VIAL (50 mg) ONE (12:21)
[2020-05-04] MEDS ORDERED: Etomidate 20 mg/10 ml 2 MG/ML 10 ml VIAL ONE (12:21)
[2020-05-04] MEDS ORDERED: Bupivacaine 0.25% SDV 30 ML ONE (12:32)
[2020-05-04] MEDS ORDERED: Phenylephrine 40 mcg/mL 10mL (400mcg) SYRINGE ONE (14:23)
[2020-05-04] MEDS ORDERED: Calcium CHLORIDE 10% SYRINGE 1 GM/10 ML ONE (14:36)
[2020-05-04] MEDS: D5LR 1000 ml BAG 1,000 ML IV SCH (16:14)
[2020-05-05] MEDS: Chlorhexidine MOUTHWASH 0.12% 15 ML UDC TOPICAL SCH ×6 (00:55→20:33)
[2020-05-05 04:59] LABS: Hematocrit 29 % (35-47); Hemoglobin 9.9 g/dL (12.0-16.0); Mean Corpuscular HGB Conc 34 g/dL (31-36); Mean Corpuscular Hemoglobin 30 pg (27-31); Mean Corpuscular Volume 89 fL (80-97); Mean Platelet Volume 8.8 fL (7.4-10.4); Platelet Count 56 10^3/uL (150-450); Red Blood Count 3.31 10^6 /uL (3.70-4.87); Red Cell Distribution Width 14 % (10-15); White Blood Count 4.2 10^3/uL (3.5-10.8)
[2020-05-05 05:14] LABS: Calcium 7.4 mg/dL (8.6-10.3); EGFR Non-African American 19.8 (>60); Magnesium 1.8 mg/dL (1.9-2.7); Potassium 4.2 mmol/L (3.5-5.0)
[2020-05-05] MEDS: D5LR 1000 ml BAG 1,000 ML IV SCH (05:41)
[2020-05-05 07:10] LABS: ABS Lymphocytes 0.4 10^3/ul (1.0-4.8); ABS Monocytes 0.2 10^3/ul (0-0.8); ABS Neutrophils 3.6 10^3/ul (1.5-7.7); Eosinophil % 0.1 %; Lymphocyte % 9.1 %; Nucleated Red Blood Cells % 0.2
[2020-05-05] MEDS: Heparin 5000 UNITS/ML 1 mL VIAL SUBCUT SCH (08:56)
[2020-05-05] MEDS: Famotidine IV 10 MG/ML 2 ml VIAL (20 mg) IV SLOW PU SCH ×2 (08:56→20:33)
[2020-05-05] MEDS: CARBAMAZEPINE G TUBE SCH ×3 (08:57→20:33)
[2020-05-05] MEDS: ZOSYN 3.375 GM Q12H per EXTENDED INFUSION IV SCH ×2 (08:57→20:33)
[2020-05-05] MEDS ORDERED: Furosemide 20 mg/2 ml IV VIAL IV ONE ×2 (10:47→17:59)
[2020-05-05] MEDS: D10W 1000 ml BAG 1,000 ML IV SCH (10:58)
[2020-05-05] MEDS: Propofol* 20 ML VIAL - FOR IV LINE PRIMING ONLY SCH ×2 (11:02→22:47)
[2020-05-05 11:11] LABS: Albumin/Globulin Ratio 1.3 (1-3); Globulin 1.5 g/dL (2-4); Indirect Bilirubin 0.7 mg/dL (0.3-1.0); Total Bilirubin 2.7 mg/dL (0.2-1.0); Total Protein 3.5 g/dL (6.4-8.9)
[2020-05-05 14:09] LABS: Hematocrit 29 % (35-47); Hemoglobin 9.7 g/dL (12.0-16.0); Mean Corpuscular HGB Conc 34 g/dL (31-36); Mean Corpuscular Hemoglobin 30 pg (27-31); Mean Corpuscular Volume 89 fL (80-97); Mean Platelet Volume 8.7 fL (7.4-10.4); Platelet Count 56 10^3/uL (150-450); Red Blood Count 3.24 10^6 /uL (3.70-4.87); Red Cell Distribution Width 14 % (10-15); White Blood Count 6.2 10^3/uL (3.5-10.8)
[2020-05-05 16:17] LABS: ABS Neutrophils 5.3 10^3/ul (1.5-7.7)
[2020-05-06] MEDS: Chlorhexidine MOUTHWASH 0.12% 15 ML UDC TOPICAL SCH ×7 (01:04→23:52)
[2020-05-06 03:49] LABS: ABS Lymphocytes 0.7 10^3/ul (1.0-4.8); ABS Monocytes 0.5 10^3/ul (0-0.8); ABS Neutrophils 7.9 10^3/ul (1.5-7.7); Hematocrit 29 % (35-47); Hemoglobin 9.7 g/dL (12.0-16.0); Lymphocyte % 7.6 %; Mean Corpuscular HGB Conc 34 g/dL (31-36); Mean Corpuscular Hemoglobin 30 pg (27-31); Mean Corpuscular Volume 89 fL (80-97); Mean Platelet Volume 9.1 fL (7.4-10.4); Nucleated Red Blood Cells % 0.3; Platelet Count 65 10^3/uL (150-450); Red Blood Count 3.22 10^6 /uL (3.70-4.87); Red Cell Distribution Width 14 % (10-15); White Blood Count 9.1 10^3/uL (3.5-10.8)
[2020-05-06 04:02] LABS: Albumin/Globulin Ratio 1.1 (1-3); Calcium 7.2 mg/dL (8.6-10.3); EGFR African American 21.6 (>60); EGFR Non-African American 17.9 (>60); Globulin 1.8 g/dL (2-4); Total Protein 3.8 g/dL (6.4-8.9)
[2020-05-06] MEDS: D10W 1000 ml BAG 1,000 ML IV SCH (06:53)
[2020-05-06] MEDS: Famotidine IV 10 MG/ML 2 ml VIAL (20 mg) IV SLOW PU SCH ×2 (07:24→21:14)
[2020-05-06] MEDS: CARBAMAZEPINE G TUBE SCH ×3 (07:24→21:14)
[2020-05-06] MEDS: ZOSYN 3.375 GM Q12H per EXTENDED INFUSION IV SCH ×2 (07:24→21:14)
[2020-05-06] MEDS: Propofol* 20 ML VIAL - FOR IV LINE PRIMING ONLY SCH (09:32)
[2020-05-06] MEDS: fentaNYL 100 mcg/2 ml 50 MCG/ML VIAL IV SLOW PU PRN ×2 (10:17→14:58)
[2020-05-06] MEDS: Dextran 70/Hypromellose Tears Eye Drops 15 ml BTL (for Artificials Tears) BOTH EYES PRN ×4 (12:48→23:51)
[2020-05-06] MEDS: TPN CENTRAL STANDARD BASE A CENTR SCH (17:27)
[2020-05-07 04:51] LABS: Hematocrit 25 % (35-47); Hemoglobin 8.7 g/dL (12.0-16.0); Mean Corpuscular HGB Conc 34 g/dL (31-36); Mean Corpuscular Hemoglobin 30 pg (27-31); Mean Corpuscular Volume 88 fL (80-97); Mean Platelet Volume 8.7 fL (7.4-10.4); Platelet Count 94 10^3/uL (150-450); Red Blood Count 2.88 10^6 /uL (3.70-4.87); Red Cell Distribution Width 14 % (10-15); White Blood Count 11.7 10^3/uL (3.5-10.8)
[2020-05-07 05:04] LABS: Albumin 1.6 g/dL (3.2-5.2); Albumin/Globulin Ratio 0.9 (1-3); BUN/Creatinine Ratio 19.2 (8-20); EGFR Non-African American 21.5 (>60); Globulin 1.7 g/dL (2-4); Magnesium 1.4 mg/dL (1.9-2.7); Phosphorus 2.5 mg/dL (2.5-5.0); Potassium 3.4 mmol/L (3.5-5.0); Total Bilirubin 2.5 mg/dL (0.2-1.0); Total Protein 3.3 g/dL (6.4-8.9)
[2020-05-07 05:13] LABS: Calcium 6.1 mg/dL (8.6-10.3)
[2020-05-07] MEDS: Dextran 70/Hypromellose Tears Eye Drops 15 ml BTL (for Artificials Tears) BOTH EYES PRN (05:51)
[2020-05-07] MEDS: Chlorhexidine MOUTHWASH 0.12% 15 ML UDC TOPICAL SCH ×6 (05:51→23:29)
[2020-05-07] MEDS: ZOSYN 3.375 GM Q12H per EXTENDED INFUSION IV SCH ×2 (07:57→20:00)
[2020-05-07] MEDS: Famotidine IV 10 MG/ML 2 ml VIAL (20 mg) IV SLOW PU SCH ×2 (07:57→20:00)
[2020-05-07] MEDS: CARBAMAZEPINE G TUBE SCH (08:26)
[2020-05-07] MEDS ORDERED: Magnesium Sulfate 2 gm BAG 2 GM/50 ML BAG IVPB ONE (09:45)
[2020-05-07] MEDS ORDERED: Calcium Gluconate 2 GM in NS 0.9% 100 ml BAG 100 ML IV ONE (09:46)
[2020-05-07] MEDS ORDERED: Furosemide 20 mg/2 ml IV VIAL IV ONE (10:09)
[2020-05-07] MEDS ORDERED: Metoprolol Tartrate 5 mg VIAL 5 ml VIAL (1 mg/ml) IV SCH (11:00)
[2020-05-07] MEDS: Metoprolol Tartrate 5 mg VIAL 5 ml VIAL (1 mg/ml) IV SCH ×3 (13:10→23:29)
[2020-05-07] MEDS: TPN CENTRAL STANDARD BASE A CENTR SCH (17:49)
[2020-05-07] MEDS: levETIRAcetam 500 MG IVPREMIX 500 MG/100 ML BAG IV SCH (19:50)
[2020-05-08] MEDS: Metoprolol Tartrate 5 mg VIAL 5 ml VIAL (1 mg/ml) IV SCH ×3 (05:14→17:46)
[2020-05-08] MEDS: Chlorhexidine MOUTHWASH 0.12% 15 ML UDC TOPICAL SCH ×5 (05:14→21:07)
[2020-05-08 05:32] LABS: Hematocrit 24 % (35-47); Hemoglobin 8.3 g/dL (12.0-16.0); Mean Corpuscular HGB Conc 35 g/dL (31-36); Mean Corpuscular Hemoglobin 31 pg (27-31); Mean Corpuscular Volume 87 fL (80-97); Mean Platelet Volume 8.8 fL (7.4-10.4); Platelet Count 158 10^3/uL (150-450); Red Blood Count 2.72 10^6 /uL (3.70-4.87); Red Cell Distribution Width 14 % (10-15); White Blood Count 10.9 10^3/uL (3.5-10.8)
[2020-05-08 05:50] LABS: Albumin 1.9 g/dL (3.2-5.2); Albumin/Globulin Ratio 0.8 (1-3); BUN/Creatinine Ratio 25.5 (8-20); Calcium 7.8 mg/dL (8.6-10.3); EGFR African American 25.1 (>60); EGFR Non-African American 20.7 (>60); Globulin 2.4 g/dL (2-4); Magnesium 2.1 mg/dL (1.9-2.7); Phosphorus 2.9 mg/dL (2.5-5.0); Potassium 3.5 mmol/L (3.5-5.0); Total Bilirubin 3.6 mg/dL (0.2-1.0); Total Protein 4.3 g/dL (6.4-8.9)
[2020-05-08] MEDS: levETIRAcetam 500 MG IVPREMIX 500 MG/100 ML BAG IV SCH ×2 (08:34→20:44)
[2020-05-08] MEDS: ZOSYN 3.375 GM Q12H per EXTENDED INFUSION IV SCH ×2 (09:05→21:07)
[2020-05-08] MEDS: Famotidine IV 10 MG/ML 2 ml VIAL (20 mg) IV SLOW PU SCH ×2 (09:05→21:07)
[2020-05-08] MEDS: TPN CENTRAL STANDARD BASE A CENTR SCH (17:46)
[2020-05-08 17:52] LABS: HIT ELISA < 0.075 OD (<0.400)
[2020-05-08] MEDS: Dextran 70/Hypromellose Tears Eye Drops 15 ml BTL (for Artificials Tears) BOTH EYES PRN (21:11)
[2020-05-08] MEDS ORDERED: Phenylephrine IV 50 MG in NS 0.9% 250 ml 245 ML IV SCH (22:00)
[2020-05-09] MEDS: Metoprolol Tartrate 5 mg VIAL 5 ml VIAL (1 mg/ml) IV SCH ×3 (01:04→12:13)
[2020-05-09] MEDS: Chlorhexidine MOUTHWASH 0.12% 15 ML UDC TOPICAL SCH ×4 (01:06→12:56)
[2020-05-09 04:42] LABS: Hematocrit 22 % (35-47); Hemoglobin 7.4 g/dL (12.0-16.0); Mean Corpuscular HGB Conc 34 g/dL (31-36); Mean Corpuscular Hemoglobin 30 pg (27-31); Mean Corpuscular Volume 88 fL (80-97); Mean Platelet Volume 8.4 fL (7.4-10.4); Platelet Count 291 10^3/uL (150-450); Red Blood Count 2.46 10^6 /uL (3.70-4.87); Red Cell Distribution Width 13 % (10-15); White Blood Count 11.6 10^3/uL (3.5-10.8)
[2020-05-09 05:03] LABS: Albumin 1.9 g/dL (3.2-5.2); Albumin/Globulin Ratio 0.9 (1-3); Calcium 7.7 mg/dL (8.6-10.3); EGFR African American 26.8 (>60); EGFR Non-African American 22.2 (>60); Globulin 2.1 g/dL (2-4); Magnesium 2.2 mg/dL (1.9-2.7); Phosphorus 3.4 mg/dL (2.5-5.0); Potassium 3.9 mmol/L (3.5-5.0); Total Bilirubin 4.5 mg/dL (0.2-1.0)
[2020-05-09] MEDS: levETIRAcetam 500 MG IVPREMIX 500 MG/100 ML BAG IV SCH ×2 (07:33→20:01)
[2020-05-09] MEDS: ZOSYN 3.375 GM Q12H per EXTENDED INFUSION IV SCH (07:33)
[2020-05-09] MEDS: Famotidine IV 10 MG/ML 2 ml VIAL (20 mg) IV SLOW PU SCH (07:33)
[2020-05-09] MEDS ORDERED: Magnesium Sulfate 2 gm BAG 2 GM/50 ML BAG IVPB ONE (08:50)
[2020-05-09] MEDS ORDERED: Heparin 5000 UNITS/ML 1 mL VIAL SUBCUT SCH (09:00)
[2020-05-09] MEDS: Dextran 70/Hypromellose Tears Eye Drops 15 ml BTL (for Artificials Tears) BOTH EYES PRN (10:03)
[2020-05-09 14:17] LABS: Troponin I 0.08 ng/mL (<0.03)
[2020-05-09] MEDS ORDERED: Ondansetron 4 mg VIAL 2 MG/ML 2 ml VIAL IV PRN (16:31)
[2020-05-09] MEDS ORDERED: LORazepam 2 mg VIAL 1 ml IV PUSH PRN (16:31)
[2020-05-09] MEDS ORDERED: HYDROmorphone 0.5 MG/0.5 ML SYRINGE IV SLOW PU PRN (16:37)
[2020-05-09 16:48] LABS: Troponin I 0.06 ng/mL (<0.03)
[2020-05-09] MEDS ORDERED: TPN 24 HR with Dextrose 50% Water 500 ML, Amino Acid Infusion 10% 850 ML, Sterile Water... CENTR SCH (17:01)
[2020-05-09] MEDS ORDERED: Lorazepam PYXIS KEY ONE ×2 (17:05→17:20)
[2020-05-09] MEDS ORDERED: LORazepam 2 mg VIAL 1 ml ONE (17:21)
[2020-05-09] MEDS: Atropine 1% (ORAL/SL) 15 ML BTL SL PRN ×2 (17:36→21:16)
[2020-05-09] MEDS ORDERED: HYDROmorphone 1 MG/1 ML SYRINGE IV SLOW PU PRN (17:45)
[2020-05-09] MEDS ORDERED: Lorazepam PYXIS KEY PRN (17:47)
[2020-05-09] MEDS ORDERED: HYDROmorphone 1 MG/1 ML SYRINGE ONE (17:48)
[2020-05-09] MEDS: HYDROmorphone 1 MG/1 ML SYRINGE IV SLOW PU PRN ×2 (17:50→20:01)
[2020-05-09] MEDS: LORazepam 2 mg VIAL 1 ml IV PUSH PRN ×2 (19:08→21:13)
[2020-05-09 22:03] VITALS: BP 44/25
== END 2020-05-09 22:15 | disposition expired | DRG 853 ==
LOC: ED 10:10 → AA 18:00 → ICU 21:15
PROVIDERS: ADMIT Surgery; ATTEND Internal Medicine